=== PATIENT | male | born 1955 | race Caucasian/White ===

== ENCOUNTER → 2017-04-05 | Outpatient (CLI) | payer MEDICAID | LOC: FIMAGING 17:07 | PROVIDERS: ATTEND Physician Assistant | DX: M25.551 Pain in right hip (principal); M79.1 Myalgia ==

== ENCOUNTER 2018-03-31 09:32 | Day surgery (SDC) | payer MEDICAID ==
[2018-03-31] MEDS ORDERED: LR 1,000 ML IV ONE (09:51)
--- NOTE | 2018-03-31 10:19 | PDHPUP ---
History & Physical Update H&P update statement: This history and physical update is based on an assessment of the patient which was completed after admission or registration (within 24 hours), but prior to the surgery/procedure. H&P update: H&P reviewed & patient examined, no change in patient's condition since H&P completed
[2018-03-31] MEDS ORDERED: NAPROXEN SODIUM 220 MG TAB PO PRN (10:38)
[2018-03-31] MEDS ORDERED: ceFAZolin 2 GM/DEXTROSE 100 ML IV ONE (10:45)
[2018-03-31] MEDS ORDERED: ONDANSETRON 4 MG/2 ML VIAL IVP PRN (10:50)
[2018-03-31] MEDS ORDERED: fentaNYL 100 MCG/2 ML INJ IVP PRN (10:50)
[2018-03-31] MEDS ORDERED: MIDAZOLAM 2 MG/2 ML VIAL IVP ONE (10:50)
[2018-03-31] MEDS ORDERED: ALBUTEROL 3 ML DEYVIAL IH PRN (10:50)
[2018-03-31] MEDS ORDERED: HYDROmorphONE/DILAUDID 2 MG/ML INJ IVP PRN (10:50)
[2018-03-31] MEDS ORDERED: NALOXONE HCL 0.4 MG/ML INJ IVP PRN (10:50)
--- NOTE | 2018-03-31 10:50 | PDANEPAE ---
ANE History of Present Illness Laser Prostate ANE Past Medical History - Cardiovascular History Hx Hypertension: No Hx Arrhythmias: No Hx Chest Pain: No Hx Coronary Artery / Peripheral Vascular Disease: No Hx CHF / Valvular Disease: No Hx Palpitations: No - Pulmonary History Hx COPD: No Hx Asthma/Reactive Airway Disease: No Hx Recent Upper Respiratory Infection: No Hx Oxygen in Use at Home: No Hx Sleep Apnea: No Sleep Apnea Screening Result - Last Documented: Positive Pulmonary History Comment: ASTHMA IN CHILDHOOD - Neurologic History Hx Cerebrovascular Accident: No Hx Seizures: No Hx Dementia: No Neurologic History Comment: ALCOHOLIC SEIZURES IN PAST - NO ALCOHOL X 10 YRS - Endocrine History Hx Diabetes: No - Renal History Hx Renal Disorders: No Renal History Comment: PROSTATE - Liver History Hx Hepatic Disorders: No - Neurological & Psychiatric Hx Hx Neurological and Psychiatric Disorders: No - Cancer History Hx Cancer: No - Congenital Disorder History Hx Congenital Disorders: No - GI History Hx Gastrointestinal Disorders: No - Other Health History Other Health History: NEG - Chronic Pain History Chronic Pain: Yes (LOW BACK PAIN) - Surgical History Prior Surgeries: HERNIA R ANE Review of Systems Review of Systems: - Exercise capacity Exercise capacity: >=4 METS METS (RN): 4 METS ANE Patient History - Allergies Allergies/Adverse Reactions: penicillin G Allergy (Verified 09/28/15 10:20) - Home Medications Home Medications: ARIPIPRAZOLE [Abilify 30mg] 30 mg PO HS 03/17/14 [Last Taken 03/30/18] Methylphenidate HCl [RITALIN LA] 30 mg PO DAILY 03/17/14 [Last Taken 03/29/18] Naproxen Sodium [Aleve 220 MG (*)] 220 mg PO BID PRN 03/17/14 [Last Taken ] lamoTRIgine [Lamictal] 200 mg PO BID 03/17/14 [Last Taken 03/30/18] traMADol 03/23/18 [Last Taken 03/30/18] Cyclobenzaprine 10 mg PO PRN PRN 03/31/18 [Last Taken 03/30/18] - NPO status NPO Since - Liquids (Date): 03/31/18 NPO Since - Liquids (Time): 08:00 NPO Since - Solids (Date): 03/30/18 NPO Since - Solids (Time): 19:00 - Smoking Hx Smoking Status: Former smoker - Family Anes Hx Family Hx Anesthesia Complications: NEG ANE Labs/Vital Signs - Vital Signs Blood Pressure: 178/91 Heart Rate: 65 Respiratory Rate: 16 O2 Sat (%): 97 Height: 177.8 cm Weight: 87.09 kg ANE Physical Exam - Airway Neck exam: FROM Mallampati Score: Class 2 Mouth exam: normal dental/mouth exam - Pulmonary Pulmonary: clear to auscultation - Cardiovascular Cardiovascular: regular rate and rhythym - ASA Status ASA Status: II ANE Anesthesia Plan Anesthesia Plan: GA w LMA
[2018-03-31] MEDS ORDERED: LIDOCAINE 2% JELLY 20 ML (UROJECT) ONE (11:07)
[2018-03-31] MEDS ORDERED: PROPOFOL 200 MG/20 ML VIAL ONE (11:18)
[2018-03-31] MEDS ORDERED: fentaNYL 100 MCG/2 ML INJ ONE ×2 (11:18→12:09)
[2018-03-31] MEDS ORDERED: DEXAMETHASONE 4 MG/ML VIAL ONE (11:27)
[2018-03-31] MEDS ORDERED: ePHEDrine SULFATE 25 MG/5 ML SYR ONE (11:43)
--- NOTE | 2018-03-31 12:43 | POSTANESTH ---
Post Anesthetic Evaluation Cardiovascular Status: Normal, Stable Respiratory Status: Normal, Stable Level of Consciousness/Mental Status: Can Participate in Eval, Alert and Oriented Pain Control: Adequate, Prn Tx Ordered Nausea/Vomiting Control: Adequate, Prn Tx Ordered Complications Possibly Related to Anesthesia: None Noted
--- NOTE | 2018-03-31 12:45 | POSTOPPROG ---
Post Op Note Date of Operation: 03/31/18 Surgeon: Enmanuel Graham Anesthesiologist: Tayler Anesthesia: LMA Pre-op Diagnosis: bph Inf/Abcess present in the surg proc area at time of surgery?: No EBL: Minimal Complications: none Drains: Other (joy) Specimen(s): none--dictated
--- NOTE | 2018-03-31 12:56 | GOP ---
[f rep st] OPERATIVE REPORT DATE OF OPERATION: 03/31/2018 SURGEON: Enmanuel Graham MD PREOPERATIVE DIAGNOSIS: Benign prostatic hypertrophy with urinary obstruction. POSTOPERATIVE DIAGNOSIS: Benign prostatic hypertrophy with urinary obstruction. PROCEDURE PERFORMED: GreenLight photovaporization of the prostate. FINDINGS: DESCRIPTION OF PROCEDURE: After appropriate time-out and general anesthesia was prepped and draped i n normal sterile fashion and the urethra was dilated to a 34-[place] and then the resectoscope element was passed under direct vision. He had +3 trabeculation of the bladder. No tumor, stones or foreig n bodies. Intravesical lobe and lateral lobar hypertrophy were identified. At that point with XPS s ystem set at 80 walls he was lasered for 3.5 minutes and done at 2 and 10 o'clock position s and then at the 5 and 7 o'clock positions. The intravesical lobe of the prostate was vaporized and at that point, turned the wattage up to 120 walls and then 13 minutes of laser time was utilized and vaporized the right lateral lobe, right portion of the posterior lobe, left lateral lobe and left po rtion of the posterior lobe. At the end of the procedure bladder was normal with no trauma. Uretera l orifices preserved. Bladder neck was hemostatic and verumontanum preserved. External sphincter ap proximated at the midline symmetrically. His bladder was emptied and then filled again and then afte r removing the scope with a coude maneuver, he had a good flow of urine. Uro-Jet placed in the ureth ra, 18 Heard catheter, 30 cc balloon inflated, and irrigated clear. We did a total of 88,986 joules. Total laser time 13 minutes, 35 seconds. He will be discharged home and I will have him remove his catheter Wednesday morning. No complications encountered. No specimens. /[id number]/MODL
[2018-03-31] MEDS ORDERED: traMADol 50 MG TAB PO SCH (14:00)
[2018-03-31 15:07] VITALS: BP 141/93
[2018-03-31] MEDS ORDERED: CYCLOBENZAPRINE 10 MG TAB PO PRN (16:00)
[2018-03-31] MEDS ORDERED: ARIPiprazole 10 MG TAB PO SCH (21:00)
[2018-03-31] MEDS ORDERED: lamoTRIgine 100 MG TAB PO SCH (21:00)
[2018-04-01] MEDS ORDERED: METHYLPHENIDATE HCL 30 MG PO SCH (09:00)
== END 2018-03-31 15:07 | disposition home or self-care (01) ==
LOC: FSGY 09:32
PROVIDERS: ATTEND Specialist
PROC: 0V508ZZ Destruction of Prostate, Via Natural or Artificial Opening Endoscopic (ICD-10-PCS; principal; 2018-03-31 11:15)
DX: N40.1 Benign prostatic hyperplasia with lower urinary tract symptoms (principal); N13.8 Other obstructive and reflux uropathy
CPT/HCPCS: J0690; J1100; J2250; J2704; J3010

== ENCOUNTER → 2018-10-22 | Outpatient (CLI) | payer MEDICAID | LOC: FIMAGING 13:37 | PROVIDERS: ATTEND Physician Assistant | DX: M48.061 Spinal stenosis, lumbar region without neurogenic claudication (principal); M43.16 Spondylolisthesis, lumbar region ==

== ENCOUNTER → 2018-11-07 | Outpatient (CLI) | payer MEDICAID | LOC: GIMAGING 12:16 → EDSTATUS 15:37 | PROVIDERS: ATTEND Physician Assistant | DX: M43.16 Spondylolisthesis, lumbar region (principal); M51.35 Other intervertebral disc degeneration, thoracolumbar region | CPT/HCPCS: 72100-PO ==